=== PATIENT | female | born 1990 | race African-American/Black ===

== ENCOUNTER 2018-02-06 03:27 | Emergency (ER) | payer SELFPAY ==
[2018-02-06] MEDS ORDERED: Pantoprazole 40 MG VIAL ONE (03:42)
[2018-02-06] MEDS ORDERED: Dicyclomine 20 MG TAB ONE (03:42)
[2018-02-06] MEDS ORDERED: Metoclopramide HCl 10 MG/2 ML VIAL ONE (03:42)
[2018-02-06 04:26] LABS: Bilirubin Negative (Negative); Blood, Urine Large (Negative); Clarity CLOUDY (Clear); Glucose, Urine (Dipstick) Negative (Negative); Leukocyte Moderate (Negative); Nitrite Negative (Negative); Protein, Urine (Dipstick) Negative (Neg-Trace); Specific Gravity, Urine 1.028 (1.002-1.036); pH, Urine 5.5 (5.0-9.0)
[2018-02-06 04:29] LABS: Bacteria/HPF None Seen HPF (None Seen); Pathc Cast-AUWi Flag 0.87 (0-2.49); WBC/HPF 21-50 HPF (0-3)
[2018-02-06 04:39] LABS: BHCG - Serum Negative (NEGATIVE); Pregs Control Background? CLEAR/WHITE (CLR/WHITE); Pregs Control Bar Appear? YES (CONTROL BAR)
[2018-02-06 04:44] LABS: ALT (SGPT) 10 U/L (8-55); AST (SGOT) 17 U/L (5-34); Albumin 4.1 g/dL (3.5-5.0); Alkaline Phosphatase 87 U/L (40-150); Anion Gap 13 mmol/L (10-20); BUN (Urea Nitrogen) 8 mg/dL (7.0-18.7); Bilirubin, Total 0.3 mg/dL (0.2-1.2); Calc. Creatinine Clearance 0 mL/min (70-130); Calcium 9.3 mg/dL (7.8-10.44); Carbon Dioxide 21 mmol/L (22-29); Chloride 108 mmol/L (98-107); Estimated GFR-MDRD Greater than 90; Globulin 3.4 g/dL (2.4-3.5); Glucose 94 mg/dL (70-105); Lipase 34 U/L (8-78); Protein, Total 7.5 g/dL (6.0-8.3); Sodium 138 mmol/L (136-145)
[2018-02-06 04:49] LABS: Mean Corpuscular HGB CONC 32.1 g/dL (32.0-36.0); Mean Corpuscular Hemoglobin 28.5 pg (27.0-31.0); Mean Corpuscular Volume 88.8 fL (78.0-98.0); Mean Platelet Volume 9.3 fL (7.4-10.4); Platelet Count 280 thou/uL (130-400); RBC Distribution Width 14.1 % (11.5-14.5); Red Blood Cell (RBC) Count 4.21 mill/uL (4.20-5.40); White Blood Cell (WBC) Count 6.7 thou/uL (4.8-10.8)
[2018-02-06] MEDS ORDERED: Ketorolac Tromethamine 30 MG/ML VIAL ONE (04:53)
[2018-02-06 05:02] LABS: Hyaline Casts/LPF NONE SEEN LPF (0-3 Hyaline)
[2018-02-06 05:26] LABS: Eosinophils 2 % (0-10); Lymphocytes 56 % (21-51); MDiff Complete? YES; Monocytes 1 % (0-10); Neutrophil 37 % (42-75); Reactive Lymphocytes 4 % (0-10)
[2018-02-06] MEDS ORDERED: Ciprofloxacin 500 MG TAB ONE (05:27)
--- NOTE | 2018-02-06 07:27 | ULT ---
TRANSABDOMINAL AND TRANSVAGINAL PELVIC ULTRASOUND: Date: 02/06/18 INDICATION: 27-year-old female with pelvic pain. TECHNIQUE: Saini scale, color Doppler, and spectral Doppler images were obtained of the pelvis via transabdominal and transvaginal approach. FINDINGS: Overlying bowel gas heavily limits image detail. There is nonvisualization of the left adnexa. The uterus is retroflexed and measures 7.3 x 3.1 x 5.1 cm. Endometrial stripe measures 7.0 mm. Right ovary measures 2.4 x 1.5 x 1.4 cm, with normal flow and appearance. No free fluid is evident. Small amount of fluid is seen within the lower endometrial canal. IMPRESSION: 1. Limitations of exam as above. 2. Visualized uterus and right adnexa are normal appearing. Left adnexa not seen due to prominent ov erlying bowel gas. 3. No free fluid demonstrated. POS: BH
--- NOTE | 2018-02-06 07:38 | CT ---
CT ABDOMEN AND PELVIS WITH IV CONTRAST: Date: 02/06/18 INDICATION: Suprapubic and left lower quadrant abdominal pain for 1 day. FINDINGS: The lung bases are clear. The liver, spleen, pancreas, adrenal glands, and kidneys are normal appearing. No free fluid or enlarged lymph nodes are seen within the upper abdomen. There is a normal appendix in the right lower quadrant of the abdomen. There are a few mildly prominent fluid-filled loops of small bowel seen within the region of the dist al ileum and right lower quadrant of the abdomen. There is no overt wall thickening. Small amount of fluid is seen within the pelvis. No pathologically enlarged lymph nodes are evident. No acute osseous abnormality is evident. IMPRESSION: 1. Mild distention of ileum in right lower quadrant of abdomen may reflect mild enteritis. 2. Normal appendix. 3. Small amount of free fluid in the pelvis. POS: BH
[2018-02-06] MEDS ORDERED: ISOVUE-370 76%-LOCM 1 ML ONE (16:04)
== END 2018-02-06 07:34 | disposition home or self-care (01) ==
LOC: ERS 03:27
DX: N39.0 Urinary tract infection, site not specified (principal)
CPT/HCPCS: 74177; 76856; 80053; 81003; 81015; 83690; 84703; 85025; 87086; 87480; 87491; 87510; 87591; 87660; 96365; 96375; C9113; J1885; J2765

== ENCOUNTER 2019-04-30 13:56 | Emergency (ER) | payer SELFPAY | END 2019-04-30 15:10 | disposition home or self-care (01) | LOC: ERS 13:56 | DX: J02.9 Acute pharyngitis, unspecified (principal) | CPT/HCPCS: 99282 ==